=== PATIENT | female | born 1930 | race Two or more races ===

== ENCOUNTER 2017-06-12 11:30 | Inpatient (IN) | payer MEDICARE ==
[~2017-06-12] VITALS: Ht 162.6 cm; Wt 67.6 kg
--- NOTE | 2017-06-12 12:00 | NUR ---
NEW IV STARTED ON LFA, 18 G. BLOOD DRAWN AND SENT TO LAB.
[2017-06-12] MEDS ORDERED: ONDANSETRON HCL/PF 4 MG/2 ML VIAL ONE (12:05)
--- NOTE | 2017-06-12 12:05 | NUR ---
PATIENT MEDICATED PER MD ORDERS.
[2017-06-12] MEDS ORDERED: MECLIZINE HCL 25 MG TABLET ONE (12:11)
[2017-06-12 12:13] LABS: BASOPHILS # (AUTO) 0.1 /CMM (0.0-0.2); BASOPHILS % (AUTO) 0.7 % (0.0-2.0); EOSINOPHILS % (AUTO) 0.4 % (0.0-6.0); HEMATOCRIT 32 % (33-45); HEMOGLOBIN 10.8 g/dL (11.5-14.8); LYMPHOCYTES # (AUTO) 1.8 /CMM (0.8-4.8); LYMPHOCYTES % (AUTO) 24.7 % (20.0-44.0); MEAN CORPUSCULAR HEMOGLOBIN 29 PG (26.0-33.0); MEAN CORPUSCULAR HGB CONC 34 g/dl (31.0-36.0); MEAN CORPUSCULAR VOLUME 87 fL (82-100); MONOCYTES # (AUTO) 0.4 /CMM (0.1-1.30); MONOCYTES % (AUTO) 4.9 % (2.0-12.0); NEUTROPHILS % (AUTO) 69.3 % (43.0-81.0); PLATELET COUNT (AUTO) 317 /CMM (150-450); RDW COEFFICIENT OF VARIATION 14.8 (11.5-15.0); RED BLOOD CELL COUNT(AUTO) 3.69 MIL/uL (4.0-5.2); WHITE BLOOD COUNT (AUTO) 7.3 K/uL (4.3-11.0)
[2017-06-12 12:25] LABS: CALCIUM, SERUM 9.1 mg/dL (8.5-10.1); CARBON DIOXIDE 26 mmol/L (21-32); CHLORIDE 105 mmol/L (98-107); CREATININE 0.9 mg/dL (0.6-1.3); GLUCOSE 109 mg/dL (74-106); SODIUM SERUM 139 mmol/L (136-145); UREA NITROGEN, BLOOD 22 mg/dL (7-18)
--- NOTE | 2017-06-12 12:25 | NUR ---
PATIENT TAKEN TO CT VIA WHEELCHAIR.
[2017-06-12] MEDS ORDERED: MECLIZINE HCL 12.5 MG TABLET PO ONE (12:30)
[2017-06-12] MEDS ORDERED: ONDANSETRON HCL/PF 4 MG/2 ML VIAL IVP ONE (12:30)
[2017-06-12] MEDS ORDERED: IV NS 0.9% 500 ML BAG IV ONE (12:30)
[2017-06-12 12:33] LABS: TROPONIN I < 0.017 ng/mL (0.00-0.056)
[2017-06-12 12:36] LABS: APPEARANCE,URINE Clear (CLEAR); BILIRUBIN,URINE Negative (NEGATIVE); BLOOD, URINE Trace-intact Ery/uL (NEGATIVE); COLOR,URINE Yellow (YELLOW); KETONES,URINE Negative (NEGATIVE); LEUKOCYTE ESTERASE ,URINE Trace (NEGATIVE); NITRITE, URINE Negative (NEGATIVE); PH,URINE 7.5 (5.0-8.0); PROTEIN,URINE 100 mg/dl (NEGATIVE); UGLUCOSE Negative (NEGATIVE); UROBILINOGEN,URINE 0.2 EU/dL (0.2)
--- NOTE | 2017-06-12 12:42 | NUR ---
PATIENT RETURNED FROM CT IN STABLE CONDITION.
[2017-06-12 13:03] LABS: BACTERIA,URINE Few /HPF (None Seen); SQUAMOUS EPITHELIAL CELL,UR Few /HPF (None Seen)
[2017-06-12] MEDS ORDERED: PROMETHAZINE HCL 25 MG/ML AMPUL ONE (13:07)
[2017-06-12] MEDS ORDERED: PROMETHAZINE HCL 25 MG/ML AMPUL IV ONE (13:30)
[2017-06-12] MEDS ORDERED: Z GUARD REMEDY 2 OZ OINT TP PRN (14:00)
[2017-06-12] MEDS: ENOXAPARIN SODIUM 40 MG/0.4 ML DISP.SYRIN SQ SCH (14:00)
[2017-06-12] MEDS ORDERED: MAGNESIUM HYDROXIDE 30 ML UDC PO PRN (14:00)
[2017-06-12] MEDS ORDERED: ONDANSETRON HCL/PF 4 MG/2 ML VIAL IVP PRN (14:00)
[2017-06-12] MEDS ORDERED: MAG HYDROX/AL HYDROX/SIMETH 30 ML UDC PO PRN (14:00)
--- NOTE | 2017-06-12 14:00 | NUR ---
TEXTED DR. ROMERO FOR MRI APPROVAL.
[2017-06-12] MEDS ORDERED: CLON0.5T4 PO (14:04)
[2017-06-12] MEDS ORDERED: METF500T4 PO (14:04)
[2017-06-12] MEDS ORDERED: LATA2.5D7 EACHEYE (14:04)
--- NOTE | 2017-06-12 14:35 | NUR ---
PATIENT TAKEN TO MRI VIA WHEELCHAIR. PATIENT VERBALIZES UNDERSTANDING AND SIGNED CONSENT FORM AND MRI CHECKLIST.
--- NOTE | 2017-06-12 14:43 | NUR ---
REPORT GIVEN TO JOHNNY WILL FOR GENESIS UPON ADMISSION
--- NOTE | 2017-06-12 14:51 | NUR ---
106 NEW BED ASSIGNMENT
--- NOTE | 2017-06-12 14:57 | NUR ---
REPORT GIVEN TO RAMANDEEP REYNOLDS RN FOR GENESIS UPON ADMISSION.
--- NOTE | 2017-06-12 15:23 | NUR ---
PATIENT RETURNED FROM MRI IN STABLE CONDITION.
--- NOTE | 2017-06-12 15:40 | NUR ---
PATIENT TRANSPORTED TO 106 VIA ACLS PROTOCOL. RNRAMANDEEP TO PROVIDE GENESIS.
[2017-06-12 16:00] VITALS: BP_SYST 148; BP_SYST 149; BP_DIAS 67
--- NOTE | 2017-06-12 16:00 | NUR ---
AUTO DEALERSHIP PORTER INITIAL NOTE PT TRANSFERRED VIA GURNEY FROM MRI. PATIENT C/O DIZZINESS NO PAIN. ALL SAFETY MEASURES IN PLACE WILL CONTINUE TO MONITOR CLOSELY. DID NOT ADMINISTER LOVENOX NOT SURE IF GIVEN BY ER.
[2017-06-12] MEDS ORDERED: GADOVERSETAMIDE 2.5 MMOL/5 ML VIAL IJ ONE (16:57)
[2017-06-12] MEDS: methylPREDNISolone SOD SUCC 40 MG/ML VIAL IV SCH ×2 (17:38→23:25)
[2017-06-12] MEDS: ACETAMINOPHEN 325 MG TABLET PO PRN ×2 (17:38→23:23)
[2017-06-12 20:00] VITALS: BP 157/68
[2017-06-12] MEDS ORDERED: DEXTROSE 50%-WATER 50 ML DISP.SYRIN IV PRN (20:30)
[2017-06-12] MEDS: BLOOD SUGAR DIAGNOSTIC 1 EACH STRIP IN SCH (21:24)
--- NOTE | 2017-06-12 21:24 | NUR ---
SENIOR PAINTER NOTE PT BS 141, PT REFUSED INSULIN, STATES "I DID NOT EAT ANYTHING TODAY". PT ON CLEAR LIQUIDS. CONTINUE TO MONITOR HER.
--- NOTE | 2017-06-12 23:22 | NUR ---
RETAIL SUPPORT MANAGER NOTE PT IS AWAKE C/O MINOR HEADACHE 3 AND UNABLE TO SLEEP, TYLENOL 650 MG GIVEN FOR HEADACHE AND AMBIEN 5 MG PO GIVEN FOR INSOMNIA. CONTINUE TO MONITOR HER.
[2017-06-12] MEDS: ZOLPIDEM TARTRATE 5 MG TABLET PO PRN (23:23)
[2017-06-13] VITALS: BP 145/69
--- NOTE | 2017-06-13 00:22 | NUR ---
HUMAN RESOURCES CONSULTANT NOTE HEADACHE SUBSIDED /, AND PT FALLING ASLEEP. NO DISTRESS OR DISCOMFORT NOTED.
[2017-06-13 04:00] VITALS: BP 139/70
[2017-06-13] MEDS: methylPREDNISolone SOD SUCC 40 MG/ML VIAL IV SCH ×4 (05:38→23:37)
[2017-06-13 06:36] LABS: BASOPHILS % (AUTO) 0.2 % (0.0-2.0); HEMATOCRIT 33 % (33-45); HEMOGLOBIN 10.9 g/dL (11.5-14.8); LYMPHOCYTES # (AUTO) 0.9 /CMM (0.8-4.8); MEAN CORPUSCULAR HEMOGLOBIN 30 PG (26.0-33.0); MEAN CORPUSCULAR HGB CONC 34 g/dl (31.0-36.0); MEAN CORPUSCULAR VOLUME 89 fL (82-100); MONOCYTES % (AUTO) 0.5 % (2.0-12.0); NEUTROPHILS # (AUTO) 5.5 /CMM (1.8-8.9); NEUTROPHILS % (AUTO) 85.3 % (43.0-81.0); PLATELET COUNT (AUTO) 293 /CMM (150-450); RDW COEFFICIENT OF VARIATION 15.6 (11.5-15.0); RED BLOOD CELL COUNT(AUTO) 3.64 MIL/uL (4.0-5.2); WHITE BLOOD COUNT (AUTO) 6.4 K/uL (4.3-11.0)
--- NOTE | 2017-06-13 06:44 | NUR ---
EXTENSION WORK DIRECTOR NOTE PT IN BED ASLEEP, AROUSABLE, NO CHANGE IN CONDITION. ASSISTED HER REPOSITION Q2H, KEPT HER DRY AND CLEAN. ON TELE SR 75. ALL NEEDS ATTENDED. SIDE RAILS UP X 3 AND CALL LIGHT WITHIN REACH. WILL ENDORSE TO DAY SHIFT NURSE FOR CONTINUE TO CARE.
[2017-06-13 06:50] LABS: CALCIUM, SERUM 9.1 mg/dL (8.5-10.1); CARBON DIOXIDE 24 mmol/L (21-32); CHLORIDE 105 mmol/L (98-107); CREATININE 0.9 mg/dL (0.6-1.3); GLUCOSE 157 mg/dL (74-106); MAGNESIUM 1.6 mg/dL (1.8-2.4); PHOSPHORUS 3.2 mg/dL (2.5-4.9); POTASSIUM 4.3 mmol/L (3.5-5.1); SODIUM SERUM 141 mmol/L (136-145); UREA NITROGEN, BLOOD 20 mg/dL (7-18)
[2017-06-13 06:55] LABS: CHOLESTEROL 167 mg/dL (<200); HDL CHOLESTEROL 91 mg/dL (40-60); LDL 71 mg/dL (0-99); TRIGLYCERIDES 44 mg/dL (30-150)
[2017-06-13 07:00] LABS: ALBUMIN 3.3 g/dL (3.4-5.0); BILIRUBIN,DIRECT 0.1 mg/dL (0.0-0.2); BILIRUBIN,TOTAL 0.2 mg/dL (0.2-1.0); TOTAL PROTEIN, SERUM 6.9 g/dL (6.4-8.2)
--- NOTE | 2017-06-13 07:05 | NUR ---
RN INITIAL NOTE PATIENT RECEIVED IN BED RESTING. EASILY AROUSED. ALERT AND ORIENTED. ABLE TO MAKE NEEDS KNOWN. NO S/S OF PAIN OR DISCOMFORT. PATIENT STATES SHE HAS A HEADACHE. SINUS RHYTHM ON TELE MONITOR.. SATING WELL ON ROOM AIR. RESPIRATIONS ARE EVEN AND UNLABORED. NO S/S OF SOB OR RESPIRATORY DISTRESS. SKIN IS WARM AND DRY TO TOUCH. IV SITE FLUSHED, PATENT. SAFETY PRECAUTIONS IMPLEMENTED. BED IN LOCKED, LOW POSITION. TWO SIDE RAILS UP. CALL LIGHT WITHIN EASY REACH. WILL CONTINUE TO MONITOR.
[2017-06-13] MEDS: ACETAMINOPHEN 325 MG TABLET PO PRN (07:48)
[2017-06-13 08:00] VITALS: BP 152/69
[2017-06-13] MEDS: BLOOD SUGAR DIAGNOSTIC 1 EACH STRIP IN SCH ×4 (08:00→21:47)
--- NOTE | 2017-06-13 08:45 | NUR ---
RN NOTE RADIOLOGY HERE TO TAKE PATIENT FOR CT
--- NOTE | 2017-06-13 09:15 | NUR ---
RN NOTE PATIENT RETURNED FROM CT
[2017-06-13] MEDS: NAPROXEN 500 MG TABLET PO SCH ×2 (11:39→17:53)
[2017-06-13] MEDS: Magnesium 1GM/D5W 100ML PREMIX 100 ML IV SCH ×2 (11:48→13:46)
[2017-06-13] MEDS: INSULIN REGULAR, HUMAN 100 UNIT/ML 3 ML VIAL SQ PRN ×2 (11:49→17:58)
[2017-06-13] MEDS: HYDROCODONE/APAP 5/325MG 1 EACH TABLET PO PRN (15:05)
[2017-06-13 16:00] VITALS: BP 150/64
[2017-06-13] MEDS: PAROXETINE HCL 20 MG TABLET PO SCH (17:53)
--- NOTE | 2017-06-13 19:30 | NUR ---
RN/MS NOTES: PATIENT RECEIVED IN BED A/O X 4. DENIES ANY C/O CHEST PAIN OR SOB AT PRESENT. NO S/S OF RESPIRATORY DISTRESS NOTED. RA SAT. 97 %. ABLE TO MAKE NEEDS KNOWN. SKIN IS WARM AND DRY TO TOUCH. PT. IS CONTINENT OF B/B. USES BSC. IV SL TO RWRIST G 22 PATENT AND INTACT W/ NO S/S OF INFECTION/INFILTRATION NOTED. SAFETY PRECAUTIONS IMPLEMENTED. BED IN LOCKED, LOW POSITION. TWO SIDE RAILS UP. CALL LIGHT WITHIN EASY REACH. WILL CONTINUE TO MONITOR
[2017-06-13 20:00] VITALS: BP 138/77
[2017-06-13] MEDS: ENOXAPARIN SODIUM 40 MG/0.4 ML DISP.SYRIN SQ SCH (21:34)
[2017-06-13] MEDS: CYANOCOBALAMIN 1,000 MCG/ML VIAL IM SCH (21:35)
[2017-06-14] MEDS: ZOLPIDEM TARTRATE 5 MG TABLET PO PRN (02:01)
[2017-06-14 04:00] VITALS: BP 149/75
[2017-06-14] MEDS: HYDROCODONE/APAP 5/325MG 1 EACH TABLET PO PRN ×2 (04:25→20:51)
[2017-06-14] MEDS: methylPREDNISolone SOD SUCC 40 MG/ML VIAL IV SCH ×3 (05:06→17:49)
--- NOTE | 2017-06-14 06:49 | NUR ---
RN/MS NOTES: PT. IN BED SLEEPING W/ RESPIRATIONS EVEN AND UNLABORED. REPORT GIVEN TO NEXT SHIFT NURSE FOR GENESIS.
[2017-06-14 08:00] VITALS: BP 138/77
[2017-06-14] MEDS: PAROXETINE HCL 20 MG TABLET PO SCH (09:17)
[2017-06-14] MEDS: CYANOCOBALAMIN 1,000 MCG/ML VIAL IM SCH (09:17)
[2017-06-14] MEDS: NAPROXEN 500 MG TABLET PO SCH ×2 (09:17→17:12)
[2017-06-14] MEDS: BLOOD SUGAR DIAGNOSTIC 1 EACH STRIP IN SCH ×4 (10:50→21:02)
--- NOTE | 2017-06-14 10:50 | NUR ---
was not able to obtain access to online until 0915 a.m. Patient is stable at this point and time. No episodes of hyper/hypoglycemia. Call light with in reach.
[2017-06-14] MEDS ORDERED: PARO10TA86 PO (12:23)
[2017-06-14] MEDS ORDERED: ATOR10TA PO (12:23)
[2017-06-14] MEDS ORDERED: LANS30CA54 PO (12:23)
[2017-06-14] MEDS: INSULIN REGULAR, HUMAN 100 UNIT/ML 3 ML VIAL SQ PRN ×2 (12:59→21:07)
[2017-06-14] MEDS: SOD FERRIC GLUC 125 MG in IV NS 0.9% 100 ML IV SCH (15:18)
[2017-06-14 16:00] VITALS: BP_SYST 179; BP_SYST 187; BP_DIAS 69; BP_DIAS 90
[2017-06-14] MEDS ORDERED: hydrALAZINE HCL 25 MG TABLET PO PRN ×2 (16:30)
--- NOTE | 2017-06-14 19:30 | NUR ---
RN/MS NOTES: PATIENT RECEIVED IN BED AWAKE AND ALERT X 4. HOB ELEVATED. DENIES ANY C/O CHEST PAIN OR SOB AT PRESENT. NO S/S OF RESPIRATORY DISTRESS NOTED. RA SAT. 97 %. ABLE TO MAKE NEEDS KNOWN. SKIN IS WARM AND DRY TO TOUCH. PT. IS CONTINENT OF B/B. USES BSC. IV SL TO RT. WRIST G 22 PATENT AND INTACT W/ NO S/S OF INFECTION/INFILTRATION NOTED. SAFETY PRECAUTIONS IMPLEMENTED. BED IN LOCKED, LOW POSITION. TWO SIDE RAILS UP. CALL LIGHT WITHIN EASY REACH. WILL CONTINUE TO MONITOR.
[2017-06-14 20:00] VITALS: BP 182/68
[2017-06-14] MEDS: ENOXAPARIN SODIUM 40 MG/0.4 ML DISP.SYRIN SQ SCH (20:51)
[2017-06-14] MEDS: hydrALAZINE HCL 25 MG TABLET PO PRN (22:18)
[2017-06-15] MEDS: methylPREDNISolone SOD SUCC 40 MG/ML VIAL IV SCH ×5 (00:12→23:27)
[2017-06-15 00:24] VITALS: BP 146/76
[2017-06-15 04:00] VITALS: BP 162/85
[2017-06-15 06:24] VITALS: BP 142/79
--- NOTE | 2017-06-15 07:02 | NUR ---
RN/MS NOTES: NO ACUTE CHANGES NOTED DURING THIS SHIFT. REPORT GIVEN TO NEXT SHIFT NURSE FOR GENESIS.
[2017-06-15] MEDS: BLOOD SUGAR DIAGNOSTIC 1 EACH STRIP IN SCH ×4 (07:30→22:10)
[2017-06-15 08:00] VITALS: BP 184/98
[2017-06-15 08:09] LABS: IMMUNOGLOBULIN A, SERUM 212 mg/dL (64-422); IMMUNOGLOBULIN G, SERUM 882 mg/dL (700-1600); IMMUNOGLOBULIN M, SERUM 96 mg/dL (26-217)
[2017-06-15] MEDS: NAPROXEN 500 MG TABLET PO SCH ×2 (08:41→18:07)
[2017-06-15] MEDS: CYANOCOBALAMIN 1,000 MCG/ML VIAL IM SCH (08:44)
[2017-06-15] MEDS: PAROXETINE HCL 20 MG TABLET PO SCH (08:44)
[2017-06-15] MEDS: hydrALAZINE HCL 25 MG TABLET PO PRN ×2 (08:44→22:31)
[2017-06-15] MEDS: INSULIN REGULAR, HUMAN 100 UNIT/ML 3 ML VIAL SQ PRN ×2 (13:37→22:12)
[2017-06-15] MEDS: SOD FERRIC GLUC 125 MG in IV NS 0.9% 100 ML IV SCH (14:48)
[2017-06-15 16:00] VITALS: BP_SYST 132; BP_SYST 183; BP_DIAS 75; BP_DIAS 84
[2017-06-15 20:00] VITALS: BP_SYST 175; BP_SYST 183; BP_DIAS 84
--- NOTE | 2017-06-15 20:26 | NUR ---
report given to KRYSTAL [place] and Patient dc'd to [facility] via rney. Patient had Levaquin IVPB and also Zosyn IVPB prior to discharge. SL removed after antibiotics given. RT gave patient nebulizer treatment prior to discharge. Patient ambulatory with [facility]. Night nurse Shelby to dc'd patient. Patient c/o she has no clothes and this nurse stated she will be d/c with patient gown and given blankets when ambulance personnel comes. Another MD- Dr Gallardo would like a 1 week follow up with her, and she asked if patient can stay for colonoscopy. Patient states she already had a colonoscopy. Patient instructed to eat her dinner, since she will be discharged. Krystle Vance RN
[2017-06-15] MEDS: ENOXAPARIN SODIUM 40 MG/0.4 ML DISP.SYRIN SQ SCH (22:15)
[2017-06-15] MEDS: HYDROCODONE/APAP 5/325MG 1 EACH TABLET PO PRN (22:35)
--- NOTE | 2017-06-15 23:12 | NUR ---
RN/MS NOTES: PT. IS SCHEDULED FOR DISCHARGE FOR NOHEMY ALFONSO. PT. BP AT 1999 WAS 175/84. GAVE HYDRALAZINE 25 MG PO AND NORCO. BP CHECKED AGAIN IT WAS 185/68. CALLED DR. BLOOD W/ NEW ORDERS NOTED. PER DR. BLOOD TO HOLD OFF THE DISCHARGE TODAY. CHARGE NURSE AWARE.
[2017-06-15] MEDS ORDERED: TEMAZEPAM 7.5 MG CAPSULE PO ONE (23:30)
[2017-06-15] MEDS ORDERED: AMLODIPINE BESYLATE 5 MG TABLET PO ONE (23:30)
[2017-06-16 04:00] VITALS: BP 131/64
[2017-06-16] MEDS: methylPREDNISolone SOD SUCC 40 MG/ML VIAL IV SCH ×2 (05:35→12:00)
--- NOTE | 2017-06-16 06:55 | NUR ---
RN/MS NOTES: PT. IS RESTING IN BED W/ HOB ELEVATED W/ NO S/S OF ANY RESPIRATORY DISTRESS NOTED. CALL LIGHT W/ REACH. REPORT GIVEN TO AM NURSE FOR GENESIS.
--- NOTE | 2017-06-16 07:30 | NUR ---
RN NOTES RECEIVED PATIENT IN BED ALERT, AWAKE, ORIENTED X3 WITH BREATHING NORMAL, EVEN AND UNLABORED. NO SOB NOTED. NO ACUTE DISTRESS NOTED. IV IS PATENT AND INTACT, NO INFILTRATION NOTED. BOWEL SOUND PRESENT. PULSES PRESENT. KEPT CLEAN, DRY AND COMFORTABLE. ALL NEEDS ATTENDED. SAFETY MEASURE OBSERVED. CALL LIGHT WITH IN REACH. WILL CONT TO MONITOR.
[2017-06-16 08:00] VITALS: BP 131/92
[2017-06-16] MEDS: BLOOD SUGAR DIAGNOSTIC 1 EACH STRIP IN SCH ×2 (08:17→12:21)
[2017-06-16] MEDS: INSULIN REGULAR, HUMAN 100 UNIT/ML 3 ML VIAL SQ PRN ×2 (08:18→12:23)
[2017-06-16 08:19] VITALS: BP 131/92
[2017-06-16] MEDS: NAPROXEN 500 MG TABLET PO SCH (08:19)
[2017-06-16] MEDS: PAROXETINE HCL 20 MG TABLET PO SCH (08:19)
[2017-06-16] MEDS: CYANOCOBALAMIN 1,000 MCG/ML VIAL IM SCH (08:20)
[2017-06-16] MEDS ORDERED: AMLODIPINE BESYLATE 5 MG TABLET PO SCH (09:00)
--- NOTE | 2017-06-16 13:00 | NUR ---
RN NOTES PATIENT DISCHARGED IN STABLE CONDITION WITH BREATHING NORMAL, EVEN AND UNLABORED. NO SOB NOTED. NO ACUTE DISTRESS NOTED. DISCHARGE INSTRUCTION GIVEN WITH FEEDBACK. UNDERSTOOD WELL. REPORT CALLED AND GIVEN TO ANNE WILL. DISCHARGE INSTRUCTION GIVEN WITH FEEDBACK. KEPT CLEAN, DRY AND COMFORTABLE. ALL NEEDS ATTENDED. IV HEPLOCK REMOVED. PATIENT LEFT VIA AMBULANCE IN STABLE CONDITION.
[2017-06-18 05:08] LABS: *SPE ALBUMIN 3.3 g/dL (2.9-4.4); *SPE ALPHA-1-GLOBULIN 0.2 g/dL (0.0-0.4); *SPE ALPHA-2-GLOBULIN 0.9 g/dL (0.4-1.0); *SPE BETA GLOBULIN 1.1 g/dL (0.7-1.3); *SPE GLOBULIN, TOTAL 3.2 g/dL (2.2-3.9); *SPE M-SPIKE Not Observed g/dL (Not Observed); *SPEGAMMA GLOBULIN 0.9 g/dL (0.4-1.8)
== END 2017-06-16 13:00 | DRG 55 ==
LOC: ER 11:32 → TELE1 14:52 → MEDSG1 06-13 10:23
DX: D32.9 Benign neoplasm of meninges, unspecified (principal); E11.9 Type 2 diabetes mellitus without complications; D64.9 Anemia, unspecified; E86.0 Dehydration; E53.8 Deficiency of other specified B group vitamins; D50.9 Iron deficiency anemia, unspecified; H81.49 Vertigo of central origin, unspecified ear; I10 Essential (primary) hypertension; Z79.84 Long term (current) use of oral hypoglycemic drugs; Z79.899 Other long term (current) drug therapy
CPT/HCPCS: 36415; 70450-TC; 70553-TC; 71045-TC; 71250-TC; 80048-TC; 80061-TC; 80076-TC; 81000-TC; 82728-TC; 82746; 82784; 82962-TC; 83540-TC; 83615-TC; 83735-TC; 84100-TC; 84155; 84165; 84443-TC; 84484-TC; 85025-TC; 86334; 87081-TC; 97110-TC; 97112-TC; 97116-TC; 97530-TC; A4606; A9579; J1650; J1815; J2405; J2550; J2916; J2920; J3420; J3475; J7030; J7040; J8597; Z7610